=== PATIENT | female | born 1970 | race Caucasian/White ===

== ENCOUNTER 2021-02-04 08:30 | Outpatient (CLI) | payer BC, SELFPAY | END 2021-02-04 08:31 | disposition home or self-care (01) | PROVIDERS: PCP Family Medicine | DX: Z23 Encounter for immunization (principal) | CPT/HCPCS: 0001A; 91300 ==

== ENCOUNTER 2021-02-25 08:28 | Outpatient (CLI) | payer BC, SELFPAY | END 2021-02-25 08:29 | disposition home or self-care (01) | LOC: ANHCOVIDVC 08:28 | PROVIDERS: PCP Family Medicine | DX: Z23 Encounter for immunization (principal) | CPT/HCPCS: 0002A; 91300 ==

== ENCOUNTER 2021-04-22 08:13 | Outpatient (CLI) | payer BC, SELFPAY ==
[2021-04-22 08:40] LABS: Basophils Absolute Auto 0.1 K/mm3 (0.0-0.1); Basophils Percent Auto 0.8 % (0.2-1.2); Eosinophils Absolute Auto 0.2 K/mm3 (0-0.3); Eosinophils Percent Auto 2.1 % (0-4.4); Hematocrit 44.8 % (37.0-47.0); Hemoglobin 15.1 g/dL (12.0-15.0); Immature Granulocyte Absolute 0.04 K/mm3 (0.00-0.031); Immature Granulocyte Percent A 0.4 % (0-0.5); Lymphocytes Absolute Auto 3.11 K/mm3 (0.9-3.2); Lymphocytes Percent Auto 32.7 % (18.3-44.2); Mean Corpuscular HGB Conc 33.7 g/dl (32-36); Mean Corpuscular Hemoglobin 31.7 pg (26-34); Mean Corpuscular Volume 94.1 fl (80-100); Mean Platelet Volume 10.2 fl (7.4-10.4); Monocytes Absolute Auto 0.8 K/mm3 (0.1-0.6); Neutrophils Absolute Auto 5.3 K/mm3 (1.3-6.7); Platelet Count Result 291 k/mm3 (150-375); Red Blood Count 4.76 M/mm3 (4.2-5.4); Red Cell Distribution Width 13.3 % (11.5-14.5); White Blood Count 9.5 K/mm3 (4.5-10.0)
[2021-04-22 08:50] LABS: Alanine Aminotransferase 23 U/L (4-35); Albumin Level 4.5 g/dL (3.5-5.1); Alkaline Phosphatase 60 U/L (38-126); Anion Gap 8 mmol/L (8-16); Aspartate Amino Transferase 33 U/L (14-36); Bilirubin,Total 0.6 mg/dL (0.2-1.3); Blood Urea Nitrogen 13 mg/dL (7-17); Calcium 9.6 mg/dL (8.4-10.2); Carbon Dioxide 30 mmol/L (22-30); Chloride 105 mmol/L (98-107); Estimated Glomerular Filt Rate > 60; Glucose 96 mg/dL (65-105); Sodium 143 mmol/L (137-145)
[2021-04-22 09:30] LABS: HIV 1/2 Ab P24 Ag Result Negative (Negative)
[2021-04-22 10:09] LABS: Hepatitis B Surface Antigen Negative (Negative)
[2021-04-22 16:30] LABS: Hepatitis B Surface Anti Res Negative
[2021-04-22 19:54] LABS: Hepatitis C Virus Antibody Negative (Negative)
[2021-04-25 03:36] LABS: Hepatitis B Core Ab Total Nonreactive (Nonreactive)
== END 2021-04-22 08:14 | disposition home or self-care (01) ==
PROVIDERS: PCP Family Medicine
DX: Z79.899 Other long term (current) drug therapy (principal)
CPT/HCPCS: 36415; 80053; 85025; 86703; 86704; 86706; 86803; 87340; G0432

== ENCOUNTER 2021-04-25 08:00 | Outpatient (CLI) | payer BC, SELFPAY ==
[2021-04-27 20:52] LABS: NIL 0.02 IU/mL; Quantiferon TB Plus, 1T NEGATIVE (NEGATIVE)
== END 2021-04-25 08:01 | disposition home or self-care (01) ==
PROVIDERS: PCP Family Medicine
DX: Z79.899 Other long term (current) drug therapy (principal)
CPT/HCPCS: 36415; 86480

== ENCOUNTER 2021-10-20 08:47 | Outpatient (CLI) | payer BC, SELFPAY ==
[2021-10-20 09:09] LABS: Basophils Absolute Auto 0.1 K/mm3 (0.0-0.1); Basophils Percent Auto 0.7 % (0.2-1.2); Eosinophils Absolute Auto 0.2 K/mm3 (0-0.3); Eosinophils Percent Auto 1.5 % (0-4.4); Hematocrit 45.8 % (37.0-47.0); Hemoglobin 15.3 g/dL (12.0-15.0); Immature Granulocyte Absolute 0.03 K/mm3 (0.00-0.031); Immature Granulocyte Percent A 0.3 % (0-0.5); Lymphocytes Absolute Auto 2.74 K/mm3 (0.9-3.2); Lymphocytes Percent Auto 24.4 % (18.3-44.2); Mean Corpuscular HGB Conc 33.4 g/dl (32-36); Mean Corpuscular Hemoglobin 32.1 pg (26-34); Mean Corpuscular Volume 96.2 fl (80-100); Monocytes Absolute Auto 0.8 K/mm3 (0.1-0.6); Monocytes Percent Auto 7.4 % (2.6-8.5); Neutrophils Absolute Auto 7.4 K/mm3 (1.3-6.7); Neutrophils Percent Auto 65.7 % (45.5-73.1); Platelet Count Result 255 k/mm3 (150-375); Red Blood Count 4.76 M/mm3 (4.2-5.4); Red Cell Distribution Width 13.4 % (11.5-14.5); White Blood Count 11.2 K/mm3 (4.5-10.0)
[2021-10-20 09:22] LABS: Alanine Aminotransferase 24 U/L (4-35); Albumin Level 4.4 g/dL (3.5-5.1); Alkaline Phosphatase 63 U/L (38-126); Anion Gap 8 mmol/L (8-16); Aspartate Amino Transferase 28 U/L (14-36); Bilirubin,Total 0.7 mg/dL (0.2-1.3); Blood Urea Nitrogen 12 mg/dL (7-17); Calcium 9.7 mg/dL (8.4-10.2); Carbon Dioxide 29 mmol/L (22-30); Chloride 106 mmol/L (98-107); Cholesterol 159 mg/dL (0-200); Estimated Glomerular Filt Rate > 60; Glucose 105 mg/dL (65-110); HDL Direct 39 mg/dL; Potassium 4.8 mmol/L (3.4-5.0); Sodium 143 mmol/L (137-145); Triglycerides 104 mg/dL (<150)
--- NOTE | 2021-10-20 09:26 | ECG_ITS ---
Measurements Intervals [place] Rate: 75 P: 53 ND: 144 QRS: 20 QRSD: 94 T: 33 QT: 365 QTc: 408 Interpretive Statements SINUS RHYTHM WITH SINUS ARRHYTHMIA NORMAL ECG Electronically Signed On 10-20-2021 16:52:52 CHARCOAL UNLOADER by Rey Fenton D.O.
[2021-10-20 09:33] LABS: LDL Cholesterol Direct 96 mg/dL
[2021-10-20 10:29] LABS: T4 Thyroxine 8.88 ug/dL (5.53-11.0)
--- NOTE | 2021-10-24 15:54 | WPDHOLTEREM ---
Holter/Event Monitor Holter/Event Monitor Date of procedure: 10/20/21 Holter/Event Procedure: 24 Hr Holter Monitor Indications: Palpitations Conclusion: 1. 24 hour holter monitor on 10/20/21. 2. Predominant rhythm is sinus rhythm. HR range 57-124 bpm; average HR 76 bpm. 3. There are 6 premature supraventricular complexes and 1 supraventricular couplets. There are 2 episodes of atrial tachycardia, fastest at 150 bpm and longest lasting 10 beats. 4. No premature ventricular complex. No ventricular tachycardia. 5. No sinoatrial or atrioventricular blocks. No significant pauses greater than 2 seconds. 6. No symptoms available for correlation.
[2021-10-24 16:01] LABS: Triiodothyronine T3 Free 3.7 pg/mL (2.3-4.2)
== END 2021-10-20 08:48 | disposition home or self-care (01) ==
LOC: ANHCARD 08:51
PROVIDERS: PCP Family Medicine; Visit Provider Family Medicine
DX: R00.2 Palpitations (principal); Z82.49 Family history of ischemic heart disease and other diseases of the circulatory system
CPT/HCPCS: 36415; 80053; 80061; 84436; 84443; 84481; 85025; 93005; 93225; 93226

== ENCOUNTER 2021-11-03 13:47 | Emergency (ER) | payer BC, SELFPAY ==
--- NOTE | ~2021-11-03 | XR_ITS ---
XR hip RT min 2V DATE: 11/03/2021 14:20 INDICATION: Low back pain radiating to right leg, worse over the past 3 weeks. Right hip pain. TECHNIQUE: AP and lateral views COMPARISON: 07/19/2019 pelvis AP view FINDINGS: No fracture or dislocation, avascular necrosis or bone destruction. Mild right hip joint sp aces narrowing and minimal right femoral head spurring consistent with mild right hip osteoarthritis. IMPRESSION: Mild right hip osteoarthritis Reviewed, dictated and finalized at location A. M SHOVEL OILER
--- NOTE | ~2021-11-03 | XR_ITS ---
XR lumbar spine 2-3V DATE: 11/03/2021 14:20 INDICATION: Low back pain radiating to right leg, worse for the past 3 weeks. TECHNIQUE: AP, lateral, coned lateral lumbosacral views COMPARISON: 07/19/2019 lumbar spine FINDINGS: There is minimal grade 1 anterolisthesis at L4-5. There is associated degenerative change a t the apophyseal joints at L4-5, as well as L5-S1. There is moderate degenerative disc disease at L1-2 and mild degenerative disc disease at L2-3, L3-4 and minimal degenerative disc disease at L4-5. L5-S1 interspace is moderately narrowed but stable sin ce 07/19/2019. The sacroiliac joints are intact. IMPRESSION: Grade 1 anterolisthesis at L4-5 due to degenerative change at the apophyseal joints, stab le since 07/19/2019 Mild to moderate degenerative disc disease of the lumbar spine Reviewed, dictated and finalized at location A. ERCPA IMPRESSION: Grade 1 anterolisthesis at L4-5 due to degenerative change at the a pophyseal joints, stable since 07/19/2019 Mild to moderate degenerative disc disease of the lumbar spine
--- NOTE | 2021-11-03 13:51 | ED.BACK ---
HPI - Back Pain/Injury General Chief Complaint: Back Pain/Injury Stated Complaint: R Lower back and hip pain Time Seen by Provider: 11/03/21 13:51 Source: patient and RN notes reviewed History of Present Illness HPI Narrative: Patient is a 51-year-old female who presents the urgent care with complaints of extreme right back pain radiating to the right pelvis and down the right leg. Patient states has been off and on for approximately 3 months and she has been seeing a chiropractor. Patient states that she has a history of herniated disks in her neck and was concerned that she may have something going on in her lower back. Patient denies of any injury or fall. States that the pain increases with sitting to standing motion and she is having difficulty bearing down to use the bathroom. Patient denies of any loss of sensation of bowel or bladder. States that she has been taking ibuprofen, Aleve and Tylenol with alternating ice and heat for pain relief. No other acute complaints. No acute distress noted. Patient went to the plan of care. Some parts of this dictation were generated by voice recognition software and may contain typographical and/or grammatical inaccuracies. Related Data Home Medications Medication Instructions Recorded Confirmed risankizumab-rzaa [Skyrizi] mg SUBCUT 11/03/21 Allergies Allergy/AdvReac Type Severity Reaction Status Date / Time No Known Allergies Allergy Verified 11/03/21 13:54 Review of Systems Review of Systems: CONSTITUTIONAL: Denies fever, chills, or sweats. EYES: Denies visual changes, redness, or discharge. ENT: Denies rhinorrhea, congestion, sore throat, or otalgia. CARDIOVASCULAR: Denies chest pain, palpitations, or edema. RESPIRATORY: Denies cough or dyspnea. GASTROINTESTINAL: Denies abdominal pain, nausea, vomiting, or diarrhea. GENITOURINARY: Denies dysuria or hematuria. SKIN: Denies rash or itching. MUSCULOSKELETAL: Reports of right low back pain radiating to the right hip/pelvis and down the right leg NEUROLOGIC: Denies headache, numbness, or weakness. All other systems reviewed are negative, except as documented in HPI. PMFSH Comments At the time of my signature, I reviewed and agree with the nursing past medical, surgical, social, and family history. There is no relevant family history pertinent to the patient complaint. Exam Narrative: GENERAL: This is a well-nourished, well-developed patient, in no apparent distress. HEAD: normocephalic, atraumatic. EYES: PERRL. Sclera clear/white. Vision is grossly intact. EARS: External ears normal NOSE: External nose normal with no obvious nasal discharge, nares without redness, no rhinorrhea. THROAT: Mucous membranes moist NECK: Neck supple CARDIOVASCULAR: Regular rate and rhythm without murmurs, gallops, or rubs. RESPIRATORY: Clear to auscultation. Breath sounds equal bilaterally. No wheezes, rales, or rhonchi. SKIN: warm, intact with no suspicious lesions or rash, good texture and turgor. NEURO: awake, alert, and oriented to person, place and time. There were no obvious focal neurologic abnormalities. EXTREMITIES: No clubbing, cyanosis, or edema. No joint tenderness, effusion, or edema noted. Positive strong right pedal pulse with capillary refill less than 2 seconds. range of motion to right hip within normal limits. Pain exacerbated with abduction. BACK: Moderate right piriformis tenderness with positive right SLE Course Course Level of Care: Express Care Visit Vital Signs Vital signs: Vital Signs Temperature 97.7 F 11/03/21 13:57 Pulse Rate 108 H 11/03/21 13:57 Respiratory Rate 16 11/03/21 13:57 Blood Pressure 138/70 11/03/21 13:57 Pulse Oximetry 100 11/03/21 13:57 Temperature 97.7 F 11/03/21 13:57 Pulse Rate 108 H 11/03/21 13:57 Respiratory Rate 16 11/03/21 13:57 Blood Pressure 138/70 11/03/21 13:57 Pulse Oximetry 100 11/03/21 13:57 Reviewed MDM - Back Pain/Injury MDM Narrative
[2021-11-03 13:57] VITALS: BP 138/70; PULSE 108; RESP 16; TEMP 36.5; O2SAT 100
== END 2021-11-03 14:35 | disposition home or self-care (01) ==
PROVIDERS: Emergency Provider Nurse Practitioner Family; PCP Family Medicine
DX: M54.31 Sciatica, right side (principal); L40.9 Psoriasis, unspecified
CPT/HCPCS: 72100; 73502; 99214; G0463

== ENCOUNTER 2022-01-03 08:21 | Outpatient (CLI) | payer BC, SELFPAY ==
--- NOTE | ~2022-01-03 | MR_ITS ---
EXAMINATION: MR lumbar spine wo con EXAM DATE: 01/03/2022 09:04 INDICATION: Low back pain. Constant throbbing dull burning pain radiating right leg to ankle. TECHNIQUE: Multi-sequential, multiplanar MR images of the lumbar spine were obtained without contrast . Sagittal T1, T2, T2 fat saturation images. Axial T2 weighted images. There is no prior study for comparison. FINDINGS: There is moderate loss of the disc height at T10-11, and L1-2. Mild to moderate disc diseas e at the other imaged levels. The vertebral bodies are aligned in the AP dimension. The conus medulla ris terminates at the L1 level and has normal signal intensity and morphology. Paraspinal soft tissu e is unremarkable. Level by level evaluation: T10-11: There is a mild diffuse disc bulge. Facet arthropathy: Moderate. Neural foraminal stenosis: No stenosis. Central canal stenosis: Mild. T11-12: Disc does not extend beyond the endplate margin. Facet arthropathy: Mild. Neural foraminal stenosis: No stenosis. Central canal stenosis: No stenosis. T12-L1: There is a mild diffuse disc bulge asymmetric to the right. Facet arthropathy: Mild. Neural foraminal stenosis: No stenosis. Central canal stenosis: No stenosis. L1-L2: There is a moderate diffuse disc bulge. Facet arthropathy: Mild to moderate. Neural foraminal stenosis: No stenosis. Central canal stenosis: Mild to moderate. L2-L3: Disc does not extend beyond the endplate margin. Facet arthropathy: Mild. Neural foraminal stenosis: No stenosis. Central canal stenosis: No stenosis. L3-L4: There is a mild diffuse disc bulge. Facet arthropathy: Mild to moderate. Neural foraminal stenosis: No stenosis. Central canal stenosis: No stenosis. L4-L5: There is a mild to moderate diffuse disc bulge. Facet arthropathy: Moderate to severe . Ligamentum flavum enlargement. There is large synovial cyst p rojecting into the lateral recess from the right facet joint causing mass effect on the exiting L4 ne rve root in both lateral recess and neural foramina. Neural foraminal stenosis: Moderate to severe right. Central canal stenosis: Severe right lateral recess, overall mild to moderate. L5-S1: There is a mild to moderate diffuse disc bulge. Facet arthropathy: Moderate. Neural foraminal stenosis: Mild to moderate bilateral. Central canal stenosis: Mild. IMPRESSION: 1. L4-5 large right facet synovial cyst significantly narrowing right lateral recess and neural fora yaritza. Clinical correlation for L4 radiculopathy. 2. Lesser spondylosis above. Reviewed, dictated and finalized at location A. E REPAIRER IMPRESSION: 1. L4-5 large right facet synovial cyst significantly narrowing right lateral recess and neural foramina. Clinical correlation for L4 radiculopathy. 2. Lesser spondylosis above.
== END 2022-01-03 08:22 | disposition home or self-care (01) ==
PROVIDERS: PCP Family Medicine; Visit Provider Chiropractor Rehabilitation
DX: M54.50 Low back pain, unspecified (principal); M71.38 Other bursal cyst, other site; M47.816 Spondylosis without myelopathy or radiculopathy, lumbar region
CPT/HCPCS: 72148

== ENCOUNTER 2022-03-07 15:43 | Outpatient (CLI) | payer BC, SELFPAY ==
--- NOTE | 2022-03-07 | ECG_ITS ---
Measurements Intervals [place] Rate: 81 P: 55 MA: 132 QRS: 17 QRSD: 99 T: 30 QT: 378 QTc: 441 Interpretive Statements SINUS RHYTHM NORMAL ECG Electronically Signed On 03-07-2022 16:34:54 CDT by Rey Fenton D.O.
--- NOTE | ~2022-03-07 | XR_ITS ---
XR chest 2V DATE: 03/07/2022 15:59 INDICATION: Bilateral leg swelling. Weight gain for 2 weeks. TECHNIQUE: PA and lateral views COMPARISON: None FINDINGS: Mild to moderate elevation left leaf of diaphragm. Hemarthrosis. No hilar or mediastinal en largement. No pulmonary infiltrate or consolidation, pleural effusion or pulmonary vascular congestion or pneumo thorax. Status post lower anterior and interbody cervical spine fusion. IMPRESSION: Mild to moderate elevation left diaphragm No active cardiopulmonary disease Reviewed, dictated and finalized at location B.
== END 2022-03-07 15:44 | disposition home or self-care (01) ==
PROVIDERS: PCP Family Medicine; Visit Provider Family Medicine
DX: R06.9 Unspecified abnormalities of breathing (principal); R63.5 Abnormal weight gain; R91.8 Other nonspecific abnormal finding of lung field
CPT/HCPCS: 71046; 93005

== ENCOUNTER 2023-07-24 17:46 | Emergency (ER) | payer BC, SELFPAY ==
--- NOTE | ~2023-07-24 | XR_ITS ---
EXAM: XR hip LT min 2V DATE: 07/24/2023 18:35 HISTORY: fall 1 week ago/posterior hip pain . COMPARISON: 07/19/2019. FINDINGS: Normal mineralization. No fracture or dislocation. No lytic or blastic lesion. Mild degene rative change in the left hip. No erosion or periosteal change. Soft tissues within normal limits. IMPRESSION: No acute osseous finding in the left hip. Reviewed, dictated and finalized at location K.
--- NOTE | ~2023-07-24 | XR_ITS ---
EXAM: XR lumbar spine 2-3V DATE: 07/24/2023 18:35 HISTORY: fall 1 week ago/low back pain . COMPARISON: 11/03/2021. FINDINGS: Uncomplicated appearing L4-5 fusion with interbody device. Mild lumbar scoliosis. 5 nonrib- bearing lumbar-type vertebral bodies. Pedicles intact. Stable grade 1 listheses at L1-2 and L4-5. Ali gnment otherwise intact. Vertebral body heights preserved. Multilevel mild degenerative disc disease. Multilevel moderate facet arthropathy. No fracture or dislocation. IMPRESSION: No acute fracture or traumatic malalignment detected in the lumbar spine. No radiographic evidence of hardware related complication. Reviewed, dictated and finalized at location K.
--- NOTE | 2023-07-24 17:55 | ED.FALL ---
HPI - Fall General Chief Complaint: Back Pain/Injury Stated Complaint: fall/ lt hip and back pain Time Seen by Provider: 07/24/23 17:55 Source: patient Mode of arrival: ambulatory Limitations: no limitations History of Present Illness HPI Narrative: Patient is a 53-year-old female that presents with left hip and back pain after fall 1 week ago. Patient states initially she had no pain but 2 days after fall as when pain started. Patient states since then pain is only worsened with any external rotation of hip, walking up stairs or sitting for prolonged periods. Patient reports pain is to lumbar back where she had previously had a fusion and left posterior hip. Denies any numbness, tingling, weakness to left lower extremity. Denies any radiating pain down leg. Denies any loss of bowel or bladder. Has been taking ibuprofen. He is also taking hydrocodone and a muscle relaxer from surgery with no relief. Related Data Home Medications Medication Instructions Recorded Confirmed guselkumab 100 mg/mL subcutaneous See Rx Instructions .Route .COMPLEX 07/24/23 07/24/23 auto-injector (Tremfya) Allergies Allergy/AdvReac Type Severity Reaction Status Date / Time house dust AdvReac Mild Hives Verified 07/24/23 18:02 wheat AdvReac Mild Rash Verified 07/24/23 18:02 egg whites AdvReac Mild Rash Uncoded 07/24/23 18:02 mites AdvReac Mild Rash Uncoded 07/24/23 18:02 pollens AdvReac Mild Hives Uncoded 07/24/23 18:02 shelfish AdvReac Mild Rash Uncoded 07/24/23 18:02 trees AdvReac Mild Sneezing Uncoded 07/24/23 18:02 Review of Systems Review of Systems: All systems reviewed & are unremarkable except as noted in HPI and below Constitutional: Constitutional: Denies body ache(s), Denies chills, Denies fatigue, Denies fever(s), Denies headache(s), Denies malaise and Denies weakness Eyes: Eyes: Denies blurry vision, Denies irritation and Denies loss of vision ENT: Denies otalgia, Denies headache(s), Denies nasal discharge, Denies sinus pain and Denies sore throat Cardiovascular: Cardiovascular: Denies chest pain, Denies irregular heart rhythm and Denies dyspnea Respiratory: Respiratory: Denies dyspnea Gastrointestinal: Gastrointestinal: Denies abdominal pain, Denies melena, Denies hematochezia, Denies diarrhea, Denies nausea and Denies vomiting Musculoskeletal: Musculoskeletal: Reports back pain, Denies myalgias and Reports arthralgias Integumentary/Breasts: Skin/Breast: Denies pruritus and Denies rash Neurologic: Denies headache(s), Denies loss of vision and Denies weakness Psychiatric: Psychiatric: Reports no additional psychiatric complaints Endocrine: Endocrine: Denies fatigue PMFSH Past Medical History Medical History Cervical endometriosis Spondylolisthesis Synovial cyst Surgical History Surgical History H/O: hysterectomy History of tonsillectomy Family History Family History Other CVD (cardiovascular disease) Diabetes mellitus Heart disease Hypertension Social History Social History Smoking status: Current every day smoker Alcohol intake: current Substance use: never Substance use type: does not use Living arrangements: with family Occupation/Education: retired Comments At time of signature, agree with nursing past medical, surgical, social and family history. There is no relevant family history pertinent to the presenting complaint. Exam Const: General: cooperative, healthy appearing, comfortable, no acute distress and well nourished Nutritional Appearance: well nourished Orientation/consciousness: patient oriented x3 Limitations: no limitations HENMT: Head: normal to inspection, normocephalic and atraumatic Ears: hearing grossly normal bilaterally and external ears n
[2023-07-24 18:11] VITALS: BP 124/73; PULSE 76; RESP 18; TEMP 36.4; O2SAT 99
== END 2023-07-24 18:58 | disposition home or self-care (01) ==
PROVIDERS: Emergency Provider Nurse Practitioner Family; PCP Family Medicine
DX: S39.012A Strain of muscle, fascia and tendon of lower back, initial encounter (principal); W19.XXXA Unspecified fall, initial encounter; N80.00 Endometriosis of the uterus, unspecified
CPT/HCPCS: 72100; 73502; 99214; G0463

== ENCOUNTER 2025-03-27 08:06 | Outpatient (CLI) | payer BC, SELFPAY ==
--- OUTSIDE RECORDS SUMMARY | 2025-03-27 08:17 | XMS_ITS | Clinical Summary ---
Author Organization [facility] Address [address] [place] [address] Care Team Providers Care Seismograph Computer Name Role Phone Rj Brantley MD Primary Care Provider [phone] Source Comments [facility],non-owned Affiliates and Associated Physician Practices is amultiple site organization consisting of ambulatory clinics and hospital sitesin [place], [place], [place] and [place]. This disclosure is being madepursuant to the Care Everywhere program and may not contain all information available regarding this patient. Last updated 18.[facility] Allergies Active Allergy Reactions Criticality Noted Date Comments Ketorolac Tromethamine Swelling 03/07/2022 Medications * Be aware that medications may not be up to date on this document. Alwaysverify current medications with the patient. No known medications Family History Medical History Relation Name Comments Diabetes; unknown type Father Heart Failure Father Hypertension Father Cancer - Colon Maternal Grandmother CVA Mother Relation Name Status Comments Father Maternal Grandmother Mother Social History Tobacco Use Types Packs/Day Years Used Date Smoking Tobacco: Never Smokeless Tobacco: Never Alcohol Use Standard Drinks/Week Comments Not Currently 0 (1 standard drink = 0.6 oz pur e alcohol) occ. PHQ-2 Answer Date Recorded PHQ2 TOTAL SCORE 0 06/22/2022 Comments No Sex and Gender Information Value Date Recorded Sex Assigned at Not on file Legal Sex Female 2:54 PM CDT Gender Identity Not on file Sexual Orientation Not on file Last Filed Vital Signs Vital Sign Reading Time Taken Comments Blood Pressure 162/82 06/22/2022 11:24 AM CDT Pulse 87 06/22/2022 11:24 AM CDT Temperature 35.6 C (96.1 F) 06/22/2022 11:24 AM CDT Respiratory Rate 18 06/22/2022 11:24 AM CDT Oxygen Saturation 98% 06/22/2022 11:24 AM CDT Inhaled Oxygen Concentration - - Weight 108.6 kg (239 lb 6 oz) 06/22/2022 11:24 A M CDT Height 170.2 cm (5' 7) 06/22/2022 11:24 AM CDT Body Mass Index 37.49 06/22/2022 11:24 AM CDT Plan of Treatment Health Maintenance Due Date Last Done Comments COLOGUARD (AGES 45-75) - COL ON CA SCREENING 1970 COLON MONITORING 1970 COLONOSCOPY - COLON CA SCREENING 1970 CT COLONOGRAPHY - COLON CA SCREENING 1970 Colorectal Cancer Screening 1970 FIT - COLON CA SCREENING 1970 FLEX SIG - COLON CA SCREENING 1970 LIPID TESTING 1970 MAMMOGRAM 1970 PAP SMEAR 1970 HIV SCREENING 1985 HEPATITIS C SCREENING 02/21/1988 DTAP/TDAP/TD VACCINES (1 - Tdap) 1989 HEPATITIS B VACCINE (1 of 3 - 19+ 3-dose series) 1989 PNEUMOCOCCAL VACCINE 50+ (1 of 1 - PCV) 02/26/2020 ZOSTER VACCINE (1 of 2) 02/26/2020 SCREENING FOR DIABETES 06/22/2022 COVID-19 VACCINE (3 - 2023-2 5 season) 2024 2021, 02/04/2021 DEPRESSION SCREENING 10/29/2024 06/22/2022 INFLUENZA VACCINE (Season Ended) 2025 HIB VACCINE Aged Out No longer eligi ble based on patient's age to complete this topic HPV VACCINE Aged Out No longer eligi ble based on patient's age to complete this topic MENINGOCOCCAL (Group B) VACCINE SHARED DECISION-MAKING Aged Out No longer eligible based on patient's age to complete this topic MENINGOCOCCAL GROUPS A/C/Y/W VACCINE Aged Out No longer eligible b ased on patient's age to complete this topic Insurance ANTHEM Care Teams Seismograph Computer Relationship Specialty Start Date End Date Rj Brantley MD [address] [place] [id number] PCP - General 06/19/22
[2025-03-27 09:11] LABS: Basophils Absolute Auto 0.1 K/mm3 (0.0-0.1); Eosinophils Absolute Auto 0.2 K/mm3 (0-0.3); Eosinophils Percent Auto 2.7 % (0-4.4); Hematocrit 44.6 % (37.0-47.0); Hemoglobin 14.4 g/dL (12.0-15.0); Immature Granulocyte Absolute 0.02 K/mm3 (0.00-0.031); Immature Granulocyte Percent A 0.3 % (0-0.5); Lymphocytes Absolute Auto 2.46 K/mm3 (0.9-3.2); Lymphocytes Percent Auto 36.3 % (18.3-44.2); Mean Corpuscular HGB Conc 32.3 g/dl (32-36); Mean Corpuscular Volume 95.9 fl (80-100); Mean Platelet Volume 11.3 fl (7.4-10.4); Monocytes Absolute Auto 0.7 K/mm3 (0.1-0.6); Monocytes Percent Auto 10.5 % (2.6-8.5); Neutrophils Absolute Auto 3.3 K/mm3 (1.3-6.7); Neutrophils Percent Auto 49.2 % (45.5-73.1); Platelet Count Result 237 k/mm3 (150-375); Red Blood Count 4.65 M/mm3 (4.2-5.4); Red Cell Distribution Width 13.1 % (11.5-14.5); White Blood Count 6.8 K/mm3 (4.5-10.0)
[2025-03-27 09:24] LABS: Alanine Aminotransferase 99 U/L (6-35); Albumin Level 4.7 g/dL (3.5-5.1); Alkaline Phosphatase 50 U/L (38-126); Anion Gap 9 mmol/L (4-12); Aspartate Amino Transferase 58 U/L (14-36); Bilirubin,Total 0.7 mg/dL (0.2-1.3); Blood Urea Nitrogen 12 mg/dL (7-17); Calcium 10.2 mg/dL (8.4-10.2); Carbon Dioxide 30 mmol/L (22-30); Chloride 104 mmol/L (98-107); Cholesterol 207 mg/dL (0-200); Estimated Glomerular Filt Rate > 60; Glucose 120 mg/dL (65-110); HDL Direct 52 mg/dL; Potassium 4.5 mmol/L (3.4-5.0); Sodium 143 mmol/L (137-145); Triglycerides 91 mg/dL (<150)
[2025-03-27 09:35] LABS: LDL Cholesterol Direct 122 mg/dL
== END 2025-03-27 08:07 | disposition home or self-care (01) ==
LOC: ANHLAB 08:09
PROVIDERS: PCP Family Medicine; Visit Provider Family Medicine
DX: Z00.00 Encounter for general adult medical examination without abnormal findings (principal)
CPT/HCPCS: 36415; 80053; 80061; 83036; 85025